=== PATIENT | female | born 1965 | race Caucasian/White ===

== ENCOUNTER 2017-12-07 19:57 | Emergency (ER) | payer OTHER | END 2017-12-07 20:24 | disposition home or self-care (01) | LOC: MADERS 19:57 | DX: H10.023 Other mucopurulent conjunctivitis, bilateral (principal); F17.210 Nicotine dependence, cigarettes, uncomplicated | CPT/HCPCS: 99283 ==

== ENCOUNTER 2018-01-12 18:50 | Emergency (ER) | payer OTHER | END 2018-01-12 19:30 | disposition home or self-care (01) | LOC: MADERS 18:50 | DX: R19.7 Diarrhea, unspecified (principal); F17.210 Nicotine dependence, cigarettes, uncomplicated; E78.5 Hyperlipidemia, unspecified | CPT/HCPCS: 99283 ==

== ENCOUNTER 2018-01-27 20:16 | Emergency (ER) | payer OTHER, SELFPAY ==
--- NOTE | 2018-01-27 21:27 | RAD ---
AP VIEW CHEST 01/27/18 HISTORY: Chest pain. AP view chest is obtained. The lungs are well aerated. No evidence of active intrathoracic disease. No evidence of effusions, pn eumonia, or pneumothorax seen. IMPRESSION: Unremarkable AP view chest. POS: [id number]
[2018-01-27 21:53] LABS: #Basophils 0.1 thou/uL (0.0-0.2); #Eosinphils 0.1 thou/uL (0.0-0.7); #Lymphocytes 2.8 thou/uL (1.20-3.40); #Monocytes 0.5 thou/uL (0.11-0.59); #Neutrophils 3.3 thou/uL (1.40-6.50); %Basophils 1.2 % (0.0-1.0); %Eosinophils 1.5 % (0.0-10.0); %Lymphocytes 41.1 % (21.0-51.0); %Monocytes 7.5 % (0.0-10.0); %Neutrophils 48.6 % (42.0-75.0); ALT (SGPT) 16 U/L (8-55); AST (SGOT) 19 U/L (5-34); Albumin 4.5 g/dL (3.5-5.0); Alkaline Phosphatase 73 U/L (40-150); Anion Gap 13 mmol/L (10-20); BUN (Urea Nitrogen) 19 mg/dL (9.8-20.1); Bilirubin, Total 0.3 mg/dL (0.2-1.2); CK (CPK) 122 U/L (29-168); Calc. Creatinine Clearance 0 mL/min (70-130); Calcium 9.9 mg/dL (7.8-10.44); Carbon Dioxide 25 mmol/L (22-29); Chloride 107 mmol/L (98-107); Estimated GFR-MDRD 53; Globulin 2.9 g/dL (2.4-3.5); Glucose 86 mg/dL (70-105); Hemoglobin 14.8 g/dL (12.0-16.0); Lipase 12 U/L (8-78); Mean Corpuscular HGB CONC 34.3 g/dL (32.0-36.0); Mean Corpuscular Hemoglobin 31.1 pg (27.0-31.0); Mean Corpuscular Volume 90.8 fL (78.0-98.0); Mean Platelet Volume 6.4 fL (7.4-10.4); Platelet Count 304 thou/uL (130-400); Potassium 3.9 mmol/L (3.5-5.1); Protein, Total 7.4 g/dL (6.0-8.3); RBC Distribution Width 12.2 % (11.5-14.5); Red Blood Cell (RBC) Count 4.76 mill/uL (4.20-5.40); Sodium 141 mmol/L (136-145); White Blood Cell (WBC) Count 6.8 thou/uL (4.8-10.8)
[2018-01-27 22:01] LABS: Troponin I Less than 0.010 ng/mL (< 0.028)
== END 2018-01-27 23:07 | disposition short-term general hospital (02) ==
LOC: MADERS 20:16
DX: R07.2 Precordial pain (principal); E78.5 Hyperlipidemia, unspecified; F17.210 Nicotine dependence, cigarettes, uncomplicated
CPT/HCPCS: 36415; 71045; 80053; 82550; 82553; 83690; 83880; 84484; 85025; 85379; 93005

== ENCOUNTER 2019-02-06 19:45 | Emergency (ER) | payer SELFPAY ==
[~2019-02-06 19:45] MED LIST: Sodium Chloride Irrig Solution 250 ML BOT ONE
[2019-02-06] MEDS ORDERED: Sodium Chloride 0.9% 100 ML ONE (20:25)
[2019-02-06 20:55] LABS: #Basophils 0.1 thou/uL (0.0-0.2); #Eosinphils 0.1 thou/uL (0.0-0.7); #Lymphocytes 2.4 thou/uL (1.20-3.40); #Monocytes 0.6 thou/uL (0.11-0.59); #Neutrophils 4.2 thou/uL (1.40-6.50); %Basophils 1.2 % (0.0-1.0); %Eosinophils 1.9 % (0.0-10.0); %Lymphocytes 32.3 % (21.0-51.0); %Monocytes 7.6 % (0.0-10.0); Hemoglobin 10.3 g/dL (12.0-16.0); Mean Corpuscular HGB CONC 33.7 g/dL (32.0-36.0); Mean Corpuscular Hemoglobin 30.4 pg (27.0-31.0); Mean Platelet Volume 6.1 fL (7.4-10.4); Platelet Count 266 thou/uL (130-400); RBC Distribution Width 12.9 % (11.5-14.5); White Blood Cell (WBC) Count 7.4 thou/uL (4.8-10.8)
[2019-02-06 21:09] LABS: Anion Gap 16 mmol/L (10-20); BUN (Urea Nitrogen) 18 mg/dL (9.8-20.1); Calc. Creatinine Clearance 0 mL/min (70-130); Calcium 9.5 mg/dL (7.8-10.44); Carbon Dioxide 24 mmol/L (22-29); Chloride 107 mmol/L (98-107); Estimated GFR-MDRD 56; Glucose 90 mg/dL (70-105); Potassium 3.8 mmol/L (3.5-5.1); Sodium 143 mmol/L (136-145)
== END 2019-02-06 21:20 | disposition short-term general hospital (02) ==
LOC: MADERS 19:45
DX: T81.40XA Infection following a procedure, unspecified, initial encounter (principal); L08.9 Local infection of the skin and subcutaneous tissue, unspecified; E78.5 Hyperlipidemia, unspecified; E78.00 Pure hypercholesterolemia, unspecified; F17.210 Nicotine dependence, cigarettes, uncomplicated
CPT/HCPCS: 80048; 85025; 87040; 87070; 87077; 87186; 87205; 96365; J3370; J3490; J7050

== ENCOUNTER 2019-02-12 16:54 | Emergency (ER) | payer OTHER, SELFPAY ==
[2019-02-12] MEDS ORDERED: Bacitracin 1 PK ONE (17:32)
== END 2019-02-12 17:54 | disposition home or self-care (01) ==
LOC: MADERS 16:54
DX: L08.9 Local infection of the skin and subcutaneous tissue, unspecified (principal); F17.210 Nicotine dependence, cigarettes, uncomplicated
CPT/HCPCS: 87070; 87205; 99283

== ENCOUNTER 2019-02-16 16:03 | Emergency (ER) | payer SELFPAY ==
[2019-02-16] MEDS ORDERED: Bacitracin 1 PK ONE (18:25)
== END 2019-02-16 18:40 | disposition home or self-care (01) ==
LOC: MADERS 16:03
DX: Z48.01 Encounter for change or removal of surgical wound dressing (principal); E78.5 Hyperlipidemia, unspecified; E78.00 Pure hypercholesterolemia, unspecified; M19.90 Unspecified osteoarthritis, unspecified site; F17.210 Nicotine dependence, cigarettes, uncomplicated; K21.9 Gastro-esophageal reflux disease without esophagitis; Z79.82 Long term (current) use of aspirin; Z79.899 Other long term (current) drug therapy
CPT/HCPCS: 99282

== ENCOUNTER 2021-06-02 10:59 | Emergency (ER) | payer BC, SELFPAY ==
[2021-06-03 17:43] LABS: SARS-CoV-2 PCR by NAA Not Detected (NotDetected)
== END 2021-06-02 11:43 | disposition home or self-care (01) ==
LOC: MADERS 10:59
DX: R05.9 Cough, unspecified (principal); E78.5 Hyperlipidemia, unspecified; E78.00 Pure hypercholesterolemia, unspecified; M19.90 Unspecified osteoarthritis, unspecified site; F17.210 Nicotine dependence, cigarettes, uncomplicated; Z79.899 Other long term (current) drug therapy; Z20.822 Contact with and (suspected) exposure to COVID-19
CPT/HCPCS: 99283; U0003; U0005

== ENCOUNTER 2022-05-11 11:05 | Emergency (ER) | payer BC, OTHER ==
[2022-05-11] MEDS ORDERED: Dexamethasone 10 MG/ML VIAL ONE (11:24)
== END 2022-05-11 12:00 | disposition home or self-care (01) ==
LOC: MADERS 11:05
DX: J06.9 Acute upper respiratory infection, unspecified (principal); E78.00 Pure hypercholesterolemia, unspecified; F17.210 Nicotine dependence, cigarettes, uncomplicated; Z20.822 Contact with and (suspected) exposure to COVID-19
CPT/HCPCS: 71045; 87804; 96372; J1100; J7620; U0003; U0005

== ENCOUNTER 2022-12-20 19:16 | Emergency (ER) | payer OTHER | END 2022-12-20 21:14 | disposition home or self-care (01) | LOC: MADERS 19:16 | DX: M25.562 Pain in left knee (principal); F17.210 Nicotine dependence, cigarettes, uncomplicated; M19.90 Unspecified osteoarthritis, unspecified site; E16.2 Hypoglycemia, unspecified; X50.3XXA Overexertion from repetitive movements, initial encounter; Y93.01 Activity, walking, marching and hiking; Y92.69 Other specified industrial and construction area as the place of occurrence of the external cause | CPT/HCPCS: 36415; 85379 ==